=== PATIENT | female | born 1990 | race African-American/Black ===

== ENCOUNTER 2019-08-05 11:18 | Emergency (ER) | payer MEDICAID ==
[~2019-08-05] VITALS: Ht 160 cm; Wt 49.9 kg
[2019-08-05 11:31] VITALS: BP 116/70
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
--- NOTE | 2019-08-05 13:33 | Diagnostic Imaging Report ---
Indication: Back pain Comparison: None Findings: 3 views of the lumbar spine were obtained. No acute fracture or malalignment is identified. Vertebral body heights and disk spaces are well maintained. Posterior elements are unremarkable. IUD noted. Impression: No acute findings.
--- NOTE | 2019-08-05 13:34 | Diagnostic Imaging Report ---
Indication: Dyspnea Comparison: None 2 views of the chest obtained. Findings: Cardiomediastinal silhouette and pulmonary vascularity are within normal limits for age. The diaphragmatic contour is smooth and costophrenic angles are sharp. No pleural effusions are identified. The bones are unremarkable. Impression: No acute disease
[2019-08-05] MEDS ORDERED: IBUPROFEN600 MG ORAL (13:40)
[2019-08-05 13:47] VITALS: BP 121/85
== END 2019-08-05 13:40 | disposition home or self-care (01) ==
LOC: EMR 13:40
DX: R07.89 Other chest pain (principal); M54.5 Low back pain; V49.50XA Passenger injured in collision with unspecified motor vehicles in traffic accident, initial encounter; Y92.410 Unspecified street and highway as the place of occurrence of the external cause; Z88.0 Allergy status to penicillin; Z97.5 Presence of (intrauterine) contraceptive device
CPT/HCPCS: 36415; 71046; 72020; 84703; Z7502; 99284

== ENCOUNTER 2020-03-25 15:02 | Emergency (ER) | payer MEDICAID, OTHER ==
[~2020-03-25] VITALS: Ht 160 cm; Wt 46.3 kg
[~2020-03-25 15:02] MED LIST: IBUPROFEN600 MG ORAL
[2020-03-25 15:13] VITALS: BP 118/78
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
[2020-03-25] MEDS ORDERED: Azithromycin 250mg tab ORAL ONE (15:30)
[2020-03-25] MEDS ORDERED: Lidocaine 1% MPF 10mg/ml 5ml INJ ONE (15:30)
[2020-03-25 16:16] LABS: APPEARANCE,URINE CLOUDY; BILIRUBIN, URINE NEGATIVE (NEGATIVE); GLUCOSE, URINE (UA) NEGATIVE (NEGATIVE); KETONES,URINE NEGATIVE (NEGATIVE); LEUKOCYTE ESTERASE ,URINE 1+ (NEGATIVE); NITRITE,URINE NEGATIVE (NEGATIVE); PH,URINE 6 (4.5-8.0); PROTEIN,URINE 1+ (NEGATIVE); UROBILINOGEN,URINE 1 MG/DL (0.0-1.0)
[2020-03-25 16:21] LABS: COLOR,URINE YELLOW
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
[2020-03-25] MEDS ORDERED: NITROFURANTOIN100 M2 ORAL (16:26)
[2020-03-25 16:36] VITALS: BP 118/78
--- NOTE | 2020-03-25 16:36 | NUR ---
ED Nurse Note: Pt cleared by ERPA for discharge. DC instructions/prescription was given and explained to pt and verbalized understanding of teachings. All medical deviecs such as ID band removed. Pt is AAO x4, ambulatory and left with all personal belongings.
== END 2020-03-25 16:35 | disposition home or self-care (01) ==
LOC: EMR 15:17
DX: Z20.2 Contact with and (suspected) exposure to infections with a predominantly sexual mode of transmission (principal); N39.0 Urinary tract infection, site not specified; Z88.0 Allergy status to penicillin
CPT/HCPCS: 81003; 81025; 87086; 87181; 96372; J0696; Z7502; 99283